=== PATIENT | male | born 1935 | race Caucasian/White ===

== ENCOUNTER 2018-06-08 08:53 | Emergency (ER) | payer OTHER ==
[~2018-06-08] VITALS: Ht 177.8 cm; Wt 84.1 kg
[2018-06-08] MEDS ORDERED: SODIUM CHLORIDE 0.9% 100 ML ONE (08:59)
[2018-06-08] MEDS ORDERED: IOVERSOL 350 MG/ML 100 ML VIAL ONE (08:59)
[2018-06-08] MEDS ORDERED: METF-960 PO (09:00)
[2018-06-08] MEDS ORDERED: LOSA1TAB37 PO (09:00)
[2018-06-08] MEDS ORDERED: HYDR10TA31 PO (09:00)
[2018-06-08] MEDS ORDERED: SIMV-261 PO (09:00)
[2018-06-08] MEDS ORDERED: MELO-107 PO (09:00)
[2018-06-08 09:13] LABS: EOSINOPHILS % (AUTO) 5.9 % (1.0-6.0); HEMATOCRIT 39.3 % (41-53); HEMOGLOBIN 13.3 g/dL (13.5-17.5); LYMPHOCYTES # (AUTO) 1.7 K/uL (1.0-4.8); LYMPHOCYTES % (AUTO) 28.7 % (22.0-44.0); MEAN CORPUSCULAR HEMOGLOBIN 30.9 pg (26.0-34.0); MEAN CORPUSCULAR HGB CONC 33.9 G/dL (31.0-37.0); MEAN CORPUSCULAR VOLUME 91 fL (80-100); MONOCYTES # (AUTO) 0.5 K/uL (0.1-1.0); MONOCYTES % (AUTO) 7.8 % (2.0-9.0); NEUTROPHILS # (AUTO) 3.4 K/uL (1.8-7.7); NEUTROPHILS % (AUTO) 56.6 % (40.0-70.0); PLATELET COUNT (AUTO) 241 K/uL (150-450); RED BLOOD CELL COUNT(AUTO) 4.32 MIL/uL (4.50-5.90); RED CELL DISTRIBUTION WIDTH 14.3 % (11.5-14.5)
[2018-06-08] MEDS: ALTEPLASE PER STROKE PROTOCOL CLINICAL ONE (09:32)
[2018-06-08 09:47] LABS: ANION GAP 4 mmol/L (8-16); CALCIUM, TOTAL 8.3 mg/dL (8.8-10.5); CARBON DIOXIDE 28 mmol/L (22-29); CHLORIDE 103 mmol/L (98-107); CREATININE 1.04 mg/dL (0.60-1.30); GLOMERULAR FILTR. RATE CALC > 60 mL/min (>60); GLUCOSE,RANDOM 122 mg/dL (70-110); POTASSIUM 4.3 mmol/L (3.5-5.1); SODIUM SERUM 135 mmol/L (136-145); UREA NITROGEN, BLOOD 24 mg/dL (7-18)
[2018-06-08 09:55] LABS: INR 1.1 (0.9-1.1)
[2018-06-08 09:57] LABS: AMPHET/METH SCREEN,URINE NEGATIVE (NEGATIVE); BARBITURATE SCREEN, URINE NEGATIVE (NEGATIVE); BENZODIAZEPINES SCREEN,URINE NEGATIVE (NEGATIVE); CANNABINOID SCREEN,URINE NEGATIVE (NEGATIVE); COCAINE SCREEN,URINE NEGATIVE (NEGATIVE); METHADONE SCREEN, URINE NEGATIVE (NEGATIVE); OPIATE SCREEN,URINE NEGATIVE (NEGATIVE); PHENCYCLIDINE SCREEN,URINE NEGATIVE (NEGATIVE)
[2018-06-08 10:04] LABS: APPEARANCE,URINE CLEAR (CLEAR); BILIRUBIN,URINE NEGATIVE (NEGATIVE); GLUCOSE, URINE (UA) NEGATIVE (NEGATIVE); KETONES,URINE NEGATIVE (NEGATIVE); LEUKOCYTE ESTERASE ,URINE NEGATIVE (NEGATIVE); NITRATE,URINE NEGATIVE (NEGATIVE); OCCULT BLOOD,URINE NEGATIVE (NEGATIVE); PROTEIN,URINE NEGATIVE (NEGATIVE); UROBILINOGEN,URINE 0.2 mg/dL (<=1.0)
[2018-06-08] MEDS: ALTEPLASE 7.6 MG in WATER FOR INJECTION,STERILE 7.6 ML IV ONE (10:07)
[2018-06-08] MEDS: ALTEPLASE 68.5 MG in WATER FOR INJECTION,STERILE 68.5 ML IV ONE (10:07)
[2018-06-08 10:14] LABS: ALANINE AMINOTRANSFERASE 11 U/L (12-78); ALBUMIN 3.3 g/dL (3.4-5.0); ALKALINE PHOSPHATASE 54 U/L (46-116); ASPARTATE AMINOTRANSFERASE 15 U/L (15-37); BILIRUBIN,TOTAL 0.5 mg/dL (0.1-1.0); CREATINE KINASE, TOTAL ONLY 106 U/L (39-308); TOTAL PROTEIN, SERUM 6.3 g/dL (6.4-8.2)
[2018-06-08] MEDS ORDERED: DOPamine HCL 400 MG/D5%-WATER 250 ML IV PRN (10:22)
[2018-06-08 10:33] VITALS: BP 100/58
== END 2018-06-08 11:10 | disposition short-term general hospital (02) ==
LOC: EMS 08:54
DX: I63.9 Cerebral infarction, unspecified (principal); E78.00 Pure hypercholesterolemia, unspecified; I10 Essential (primary) hypertension; Z79.84 Long term (current) use of oral hypoglycemic drugs
CPT/HCPCS: 36415; 37195; 70450; 70496; 71045; 80053; 80307; 81003; 82550; 82962; 83880; 84484; 85025; 85610; 85730; 86850; 86900; 86901; 93005; 99291; J2997; J7050; Q9967